=== PATIENT | male | born 1995 | race Caucasian/White ===

== ENCOUNTER 2017-06-02 11:28 | Emergency (ER) | payer OTHER ==
[~2017-06-02] VITALS: Ht 172.7 cm; Wt 70.5 kg
[2017-06-02 11:29] VITALS: BP 146/74
[2017-06-02] MEDS ORDERED: PERCOCET 5MG/325MG TAB PO ONE (12:15)
--- NOTE | 2017-06-02 12:45 | REP ---
Left thumb two views : There is no fracture or dislocation. Mineralization and joint spaces are normal. There are no calcifications or foreign bodies. Impression: Negative left thumb . Signed by Aníbal Vargas MD 06/02/2017 12:36 P
[2017-06-02] MEDS ORDERED: IBUP-1022 PO (13:03)
[2017-06-02] MEDS ORDERED: ULTR50TA8 PO (13:03)
== END 2017-06-02 13:11 | disposition home or self-care (01) ==
LOC: M ED 11:28
DX: S63.602A Unspecified sprain of left thumb, initial encounter (principal); W21.09XA Struck by other hit or thrown ball, initial encounter; Y92.9 Unspecified place or not applicable; Y93.89 Activity, other specified; Y99.0 Civilian activity done for income or pay; Z88.0 Allergy status to penicillin